=== PATIENT | female | born 1950 | race Caucasian/White ===

== ENCOUNTER → 2019-10-15 | Day surgery (SDC) | payer BC, OTHER ==
[~2019-10-15] VITALS: Ht 160 cm; Wt 70.3 kg
[~2019-10-15] MED LIST: ALPRAZOLAM1 MG PO; BUPROPION XL150 MG PO; BUPROPION XL300 MG PO; BUSPIRONE HCL10 MG PO; BUTALB-ACETAMI1 EACH PO; DULOXETINE HCL60 MG PO; HYDRALAZINE 2525 M1 PO; HYTRIN 2MG CAPSU2 M1 PO; IRON325 M1 PO; LEVOTHYROXINE75 MCG PO; METOPROLOL TAR100 MG PO; NORVASC5 MG PO; OLOPATADINE HC2.5 ML OPHTHALMIC; PERCOCET 7.5-31 EAC1 PO; PROAIR HFA8.5 GM INH; SINGULAIR 10 MG10 M1 PO; SPRYCEL100 MG PO; TIZANIDINE4 MG/1 TA1 PO; XYZAL5 MG PO
[2019-10-15 11:48] VITALS: BP 137/68
[2019-10-15 12:17] LABS: HEMATOCRIT 34.9 % (37.0-47.0); HEMOGLOBIN 11.6 gm/dL (12.0-15.0); MCH 31.1 pg (26.0-34.0); MCHC 33.2 g/dL (28.0-37.0); MCV 93.9 fL (80.0-100.0); RBC 3.71 mil/uL (4.20-5.00); RDW 14.9 % (10.5-14.5); WBC 11.9 thou/uL (4.0-11.0)
[2019-10-15 12:33] LABS: CALCIUM 8.8 mg/dL (8.5-10.1); CREATININE 1.8 mg/dL (0.6-1.0); POTASSIUM 4.1 mmol/L (3.5-5.1)
[2019-10-15 12:38] LABS: ALBUMIN 3.7 g/dL (3.4-5.0); TOTAL BILIRUBIN 0.3 mg/dL (0.2-1.0); TOTAL PROTEIN 6.9 g/dL (6.4-8.2)
[2019-10-15 14:36] VITALS: BP 137/68
--- NOTE | 2019-10-15 16:23 | EKG ---
[facility] [place] [address] ELECTROCARDIOGRAM REPORT Name: JUAN WALSH Room #: REG [facility]#: [id number] Admission: 10/15/19 Attend Phys: Dominick Han MD Discharge: Date of : 54 Report #: [id number] THIS REPORT FOR: cc: Geraldo Cheng MD, Alexander C. MD Lundgren,Aryan Adames MD [facility] ~ THIS REPORT FOR: //name// [facility] Test Date: 2019-10-15 Test Time: 11:52:25 Pat Name: JUAN WALSH Department: Room: Gender: Cra Officer: dago : 1950 Requested By: Dominick Han Order Number: [id number] MD: Aryan Mackay Measurements Intervals [place] Rate: 66 P: 67 MA: 159 QRS: -8 QRSD: 86 T: 46 QT: 392 QTc: 411 Interpretive Statements Sinus rhythm Low voltage No previous ECG available for comparison Electronically Signed On 10-15-2019 16:23:06 CDT by Aryan Mackay [email or web address] <ELECTRONICALLY SIGNED> By: Aryan Mackay MD, [facility] 10/15/19 1623 1152 1152 Aryan Mackay MD, [facility] /EPI
--- NOTE | 2019-10-26 13:36 | O ---
[facility] [place] [address] OPERATIVE REPORT Name: JUAN WALSH Room #: REG [facility]#: [id number] Admission: 10/15/19 Attend Phys: Dominick Han MD Discharge: Date of : 54 Report #: [id number] THIS REPORT FOR: cc: Geraldo Cheng MD, Alexander C. MD Kneidel,Dominick Bowens MD ~ CC: Geraldo Han DATE OF SERVICE: 10/15/2019 PREOPERATIVE DIAGNOSIS: Right fifth hammertoe deformity. POSTOPERATIVE DIAGNOSIS: Right fifth hammertoe deformity. PROCEDURE: Right fifth toe PIP joint arthrodesis with dorsal capsulotomy and tenotomy. SURGEON: Dominick Han M.D. SPINE SURGEON: Heena Zuleta. ANESTHESIA: General. ESTIMATED BLOOD LOSS: Minimal. DRAINS: No drains. TOURNIQUET TIME: 20 minutes. DESCRIPTION OF PROCEDURE: The patient was brought to the operating room where she was placed under general anesthesia. Once under adequate general anesthesia, her right lower extremity was prepped and draped in a sterile manner. The extremity was elevated, exsanguinated. Tourniquet placed at 300 mmHg. A dorsal incision over the proximal interphalangeal joint of the fifth toe was then made. This was dissected down through the soft tissue to the PIP joint. This was then exposed with a [place] blade and exposure of the proximal phalangeal head was achieved. A sagittal saw was then used to resect this and the base of the middle phalanx was prepared with a rongeur, removing any cartilage getting to good bleeding subchondral bone. A Smart Toe implant was then prepared by drilling and broaching the proximal and middle phalanges and a size 11 Smart Toe implant was then placed. Excellent fixation and alignment was achieved as verified under fluoroscopy. The wound was then irrigated copiously and closed with 3-0 nylon for the skin. A dorsal capsulotomy and tenotomy was performed with a [place] blade through a small skin incision in the dorsal metatarsophalangeal joint and similarly, a release of plantar wart was achieved [facility] [address] [place] [address] OPERATIVE REPORT Name: JUAN WALSH Room #: REG [facility].#: [id number] Admission: 10/15/19 Attend Phys: Dominick Han MD Discharge: Date of : 54 Report #: [id number] with a [place] blade. Once complete, the toe was well aligned. The wounds were irrigated copiously and closed with 3-0 nylon for the skin. The wounds were dressed with Xeroform, 4 x 4s, and a sterile soft compressive dressing was placed. Tourniquet was let down at 20 minutes. Toes were pink and warm with good capillary refill. There were no complications from the procedure. The patient tolerated the procedure well and went to the recovery room without incident. <ELECTRONICALLY SIGNED> By: Dominick Han MD 10/26/19 1336 [id number] 1419 Dominick Han MD /elly
== END | disposition home or self-care (01) ==
LOC: OR 10:23
PROVIDERS: ATTEND Orthopaedic Surgery Foot and Ankle Surgery
DX: M20.41 Other hammer toe(s) (acquired), right foot (principal); M25.571 Pain in right ankle and joints of right foot; I12.9 Hypertensive chronic kidney disease with stage 1 through stage 4 chronic kidney disease, or unspecified chronic kidney disease; N18.2 Chronic kidney disease, stage 2 (mild); K21.9 Gastro-esophageal reflux disease without esophagitis; Z98.890 Other specified postprocedural states; Z11.59 Encounter for screening for other viral diseases; Z79.899 Other long term (current) drug therapy; Z90.49 Acquired absence of other specified parts of digestive tract; Z98.41 Cataract extraction status, right eye; Z98.42 Cataract extraction status, left eye; Z96.1 Presence of intraocular lens; Z90.710 Acquired absence of both cervix and uterus; Z85.6 Personal history of leukemia; Z87.891 Personal history of nicotine dependence; Z88.0 Allergy status to penicillin; Z88.8 Allergy status to other drugs, medicaments and biological substances
CPT/HCPCS: 50010; 50101; 50386; 50951; 51291; 56526; 56527; 57091; 58203; 62110; 62900; 70005